=== PATIENT | male | born 1990 | race Two or more races ===

== ENCOUNTER 2019-02-01 07:20 | Emergency (ER) | payer MEDICAID ==
[2019-02-01 08:14] LABS: ABSOLUTE BASOPHILS # (AUTO) 0.1 10^3/uL (0.0-0.2); ABSOLUTE EOSINOPHILS # (AUTO) 0.4 10^3/uL (0.0-0.6); ABSOLUTE LYMPHOCYTES (AUTO) 2.2 10^3/uL (0.5-4.7); ABSOLUTE MONOCYTES (AUTO) 0.7 10^3/uL (0.1-1.4); ABSOLUTE NEUT (AUTO) 3.9 10^3/uL (1.7-8.2); BASOPHILS % (AUTO) 1.9 % (0-2); EOSINOPHILS % (AUTO) 5.5 % (0-6); HEMATOCRIT 45.6 % (37.9-51.0); LYMPHOCYTES % (AUTO) 29.8 % (13-45); MEAN CORPUSCULAR HEMOGLOBIN 27.3 pg (27.0-33.4); MEAN CORPUSCULAR HGB CONC 32.9 g/dL (32.0-36.0); MEAN CORPUSCULAR VOLUME 83 fl (80-97); MONOCYTES % (AUTO) 9.1 % (3-13); PLATELET COUNT 436 10^3/uL (150-450); RED CELL DISTRIBUTION WIDTH 14.4 % (11.5-14.0); SEGMENTED NEUTROPHILS % (AUTO) 53.7 % (42-78); TOTAL CELLS COUNTED % (AUTO) 100 %; WHITE BLOOD COUNT 7.3 10^3/uL (4.0-10.5)
[2019-02-01 08:20] LABS: APPEARANCE,URINE CLEAR; BILIRUBIN,URINE NEGATIVE (NEGATIVE); COLOR,URINE YELLOW; GLUCOSE, URINE NEGATIVE (NEGATIVE); KETONES,URINE NEGATIVE (NEGATIVE); LEUKOCYTE ESTERASE,URINE NEGATIVE (NEGATIVE); NITRITE,URINE NEGATIVE (NEGATIVE); PROTEIN,URINE NEGATIVE (NEGATIVE); URINE SPECIFIC GRAVITY 1.021; UROBILINOGEN,URINE NEGATIVE mg/dL (<2.0)
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
[2019-02-01 08:26] LABS: ALANINE AMINOTRANSFERASE 149 U/L (21-72); ALBUMIN 4.6 g/dL (3.5-5.0); ALCOHOL 145 mg/dL (NONE DETECTED); ALKALINE PHOSPHATASE 71 U/L (38-126); ANION GAP 12 (5-19); ASPARTATE AMINO TRANSFERASE 81 U/L (17-59); BILIRUBIN,DIRECT 0.2 mg/dL (0.0-0.4); BILIRUBIN,TOTAL 0.4 mg/dL (0.2-1.3); BLOOD UREA NITROGEN 7 mg/dL (7-20); CALCIUM 9.8 mg/dL (8.4-10.2); CARBON DIOXIDE 27 mmol/L (22-30); CHLORIDE 102 mmol/L (98-107); GLUCOSE 97 mg/dL (75-110); POTASSIUM 4.5 mmol/L (3.6-5.0); SODIUM 140.7 mmol/L (137-145); TOTAL PROTEIN 7.9 g/dL (6.3-8.2)
[2019-02-01 08:27] LABS: ACETAMINOPHEN < 10 ug/mL (10-30); SALICYLATE < 1.0 mg/dL (2.0-20.0)
[2019-02-01 08:36] LABS: URINE AMPHETAMINES SCREEN NEGATIVE; URINE BARBITURATES SCREEN NEGATIVE; URINE BENZODIAZEPINES SCREEN NEGATIVE; URINE COCAINE SCREEN NEGATIVE; URINE MARIJUANA (THC) SCREEN NEGATIVE; URINE METHADONE SCREEN NEGATIVE; URINE PHENCYCLIDINE SCREEN NEGATIVE
--- NOTE | 2019-02-01 08:58 | EKG REPORT ---
SEVERITY:- OTHERWISE NORMAL ECG - SINUS RHYTHM LA ABNORMALITY. : Confirmed by: lA Hassan MD 01-Feb-2019 08:57:56
[2019-02-01] MEDS ORDERED: ZIPRASIDONE MESYLATE INJ/PF 20 MG SDV IM ONE (10:02)
[2019-02-01] MEDS ORDERED: BENZTROPINE MESYLATE INJ 2 MG/2 ML AMPULE IM ONE (10:02)
--- NOTE | 2019-02-01 10:32 | PSYCHOLOGICAL NOTE ---
Psych Note - Psych Note Date seen by psych provider: 02/01/19 Time seen by psych provider: 09:00 - 0920 Psych Note: Reason for Consult: Suicidal ideation Patient is a 28-year-old male presenting to the emergency department with suicidal ideation. Patient states he came here from [place] about a week ago to visit his mother. He confirms that he came down almost immediately after being released from inpatient psychiatric treatment. He disclosed that he did not fill his prescriptions upon being released because he felt moving down here and taking care of himself (i.e. working out and eating right) he would not need the medication. Patient admits to history of substance abuse including alcohol. He states that that was in his past however does have a positive Ethyl 145. No other substances are detected in toxicology. Patient reports he has not slept in approximately 4 days and has been working out 3 hours a day. He discloses that he has been trying to get himself exhausted to sleep however can only sleep for about 20 minutes at a time Patient's mother discloses concern that she has been attempting to obtain mental health services for her son and has been unable to achieve appropriate services in [place]. She discloses that he goes inpatient and then signed himself out. He is noncompliant on medications upon discharge and was homeless up in [place]. She disclosed she was hoping that his move down here to her would improve both his situation and treatment. Patient is alert and orientated to person, place, time and circumstance. Mood is hypomanic with flat affect. Patient has psychomotor agitation with ringing his hands and pacing. Eye contact is poor. Conversational speech is calm however halting as patient appears to be struggling with organized and linear thoughts. Behavior is congruent with an intact reality based presentation with no evidence of delusional thought processes. Intellectual abilities appear to be within the average range. Attention and concentration is poor. Insight, judgment, impulse control is poor. Bipolar per history provided by patient Polysubstance abuse per history provided by patient Medication recommendations per [facility]'s contracted psychiatrist Dr. Maciej DUCKWORTH are as follows continue Zyprexa 5mg twice daily Continue Cogentin 1mg daily Impression\plan: Patient is recommended for IVC petition for overnight mental health observation. Patient is presenting under the influence of alcohol. Patient does present with hypomanic mood and flat affect. He has a substantial history of mental health and substance abuse and has been in [facility] for approximately 1 week since arriving from [place]. Patient's mother lives in the local area. Dr. Delgado was consulted to care management of this patient; attending physicians in agreement with recommendations and disposition.
[2019-02-01] MEDS ORDERED: ACETAMINOPHEN 325 MG TABLET PO ONE ×2 (16:03→23:06)
[2019-02-01] MEDS: BENZTROPINE MESYLATE 1 MG TABLET PO SCH (18:45)
[2019-02-01] MEDS: OLANZAPINE 5 MG TABLET PO SCH (18:45)
[2019-02-02] MEDS ORDERED: ACETAMINOPHEN 325 MG TABLET PO ONE (09:08)
[2019-02-02] MEDS: OLANZAPINE 5 MG TABLET PO SCH ×2 (10:07→18:56)
[2019-02-02] MEDS: BENZTROPINE MESYLATE 1 MG TABLET PO SCH (10:07)
--- NOTE | 2019-02-02 10:31 | ER Document Report ---
Doctor's Note Notes: 02/02/19 10:30 I have evaluated this pt. this am and he has no c/o other than insomnia. He feels all of his needs are being met and his physical exam is normal. He is awaiting disposition per mental health.
[2019-02-02] MEDS ORDERED: ZIPRASIDONE MESYLATE INJ/PF 20 MG SDV IM ONE (11:56)
[2019-02-03] MEDS ORDERED: OLANZAPINE INJ/PF 10 MG SDV IM ONE (03:53)
[2019-02-03] MEDS: OLANZAPINE 5 MG TABLET PO SCH ×2 (10:59→17:39)
[2019-02-03] MEDS: BENZTROPINE MESYLATE 1 MG TABLET PO SCH (10:59)
--- NOTE | 2019-02-03 12:49 | ER Document Report ---
Doctor's Note Notes: 02/03/19 12:47 Rounds: Chart reviewed and patient interviewed. Patient being evaluated for suicidal thoughts. Also have been drinking fairly heavily of alcohol with a level of 145 on admission. History of polysubstance abuse. Lab studies were essentially normal except for his blood alcohol of 145. Vital signs are all normal. Patient appears to be medically stable for transfer or discharge. Chris Bautista MD
--- NOTE | 2019-02-03 14:53 | PSYCHOLOGICAL NOTE ---
Psych Note - Psych Note Date seen by psych provider: 02/03/19 Time seen by psych provider: 10:00 Psych Note: Reason for Consult: Suicidal ideation Patient is a 28-year-old male presenting to the emergency department with suicidal ideation. Check in with patient conducted Patient continues to demonstrate with blunted affect with frequent pacing. He is only sleeping for about 2-3 hours after IM medication is administered. Medication recommendations have been updated. Patient identified improvement in anxiety. Bipolar per history provided by patient Polysubstance abuse per history provided by patient Medication recommendations per [facility]'s contracted psychiatrist Dr. Maciej DUCKWORTH are as follows continue Zyprexa 5mg twice daily Continue Cogentin 1mg daily please add depakote 500ng twice daily please add throazine 50mg at bedtime Impression\plan: Patient is recommended for continued IVC. Patient's affect has improved from flat however still is blunted. Patient's anxiety has improved per patient. Patient is still observed frequently pacing and has only slept approximately 2 to 3 hours after receiving IM medication. Updated medication recommendations have been provided. Patient will be reevaluated with the hope of possible discharge tomorrow. Dr. Delgado was consulted to care management of this patient; attending physicians in agreement with recommendations and disposition.
--- NOTE | 2019-02-03 14:57 | PSYCHOLOGICAL NOTE ---
Psych Note - Psych Note Date seen by psych provider: 02/02/19 Time seen by psych provider: 10:10 Psych Note: Reason for Consult: Suicidal ideation Patient is a 28-year-old male presenting to the emergency department with suicidal ideation. Check in with patient conducted Patient continues to demonstrate with flat affect with frequent pacing. Patient has required additional medications at night to aid in sleep. While patient has been compliant, he has demonstrated significant agitation and repeatedly requests to leave. Bipolar per history provided by patient Polysubstance abuse per history provided by patient Medication recommendations per [facility]'s contracted psychiatrist Dr. Maciej DUCKWORTH are as follows continue Zyprexa 5mg twice daily Continue Cogentin 1mg daily Impression\plan: Patient is recommended for continued IVC. Patient's affect continues to be flat. Patient demonstrates significant agitation and repeatedly requests to leave. Patient will be reevaluated. Dr. Delgado was consulted to care management of this patient; attending physicians in agreement with recommendations and disposition.
[2019-02-03] MEDS: ACETAMINOPHEN 325 MG TABLET PO PRN (16:29)
[2019-02-03] MEDS: DIVALPROEX SODIUM 500 MG TAB.SR.24H PO SCH (17:40)
[2019-02-03] MEDS ORDERED: CHLORPROMAZINE HCL 50 MG TABLET PO SCH (22:00)
--- NOTE | 2019-02-04 09:39 | ER Document Report ---
Doctor's Note Notes: 02/04/19 09:38 Rounds: Chart reviewed and patient interviewed. Patient is being evaluated for substance abuse, particularly alcohol. Also complains of being suicidal. Says he is feeling better today. Vital signs are all normal. No new labs to review. Patient appears to be medically stable for transfer or discharge. Chris Bautista MD
[2019-02-04] MEDS: OLANZAPINE 5 MG TABLET PO SCH (09:42)
[2019-02-04] MEDS: BENZTROPINE MESYLATE 1 MG TABLET PO SCH (09:42)
[2019-02-04] MEDS: ACETAMINOPHEN 325 MG TABLET PO PRN (09:42)
[2019-02-04] MEDS: DIVALPROEX SODIUM 500 MG TAB.SR.24H PO SCH (09:42)
[2019-02-04 12:33] VITALS: BP 140/80
--- NOTE | 2019-02-05 14:47 | PSYCHOLOGICAL NOTE ---
Psych Note - Psych Note Date seen by psych provider: 02/04/19 Time seen by psych provider: 08:54 - Evaluation from [id number]. Psych Note: Presenting Problem: SI, IVC, medication adjustments. Today patient reported he felt" better, actually got sleep last night and felt refreshed." He commented he had not slept in days prior. Mood was still depressed but with brighter affect. He denied negative side effects from medications and no observed symptoms. He identified his "anxiety was still there, has lots going on, but it is not as bad." He noted "I do feel good and like I can concentrate." He denied SI/HI. Patient was alert and oriented x5, had linear thinking, fair eye contact, was able to carry on dialogue conversation, able to express self/wants/needs and part of his plan of care for discharge. Family friend who works in the mental health profession came to visit patient. Mother part of plan of care and present prior to discharge. She agreed to in control of medications and administration. She identified patient has [place] Medicaid and so issue is access to health care/cost of medications until it can be transferred (have not started process yet). Diagnosis: 296.80 (F31.9) Unspecified Bipolar and Related Disorder by Hx per patient 291.9 (F10.99) Unspecified Alcohol Related Disorder (Serum Alcohol level was 145, patient stated it was to sleep) Poor Sleep Polysubstance Use by Hx per patient Impression/Plan: Patient is cleared from acute psychiatric services. Recommendation to rescind IVC. He denied SI/HI and no observed psychosis. He was alert and oriented x5 with linear thinking. Mother involved in plan of care and agreed to be in control of medications and administration. Patient provided with the outpatient MH resource sheet which highlighted [facility] for crisis/talk therapy/linkage to other supports and services, as well [facility] as a walk in M-F [id number] with recommendation to go first thing tomorrow (02/05/19) morning. Also provided [facility] information (where family friend had connections). Provided Good Rx card and coupons for medications. Informed patient and mother to do state to state Medicaid transfer patient needs to contact [facility] and likely go to office. Consulted with Dr. Delgado regarding the management and care of patient. ED Physician in agreement with recommendations.
== END 2019-02-04 12:29 | disposition home or self-care (01) ==
LOC: ER 07:20
DX: R45.851 Suicidal ideations (principal); F10.920 Alcohol use, unspecified with intoxication, uncomplicated; Y90.6 Blood alcohol level of 120-199 mg/100 ml; F30.8 Other manic episodes; F19.10 Other psychoactive substance abuse, uncomplicated; G47.00 Insomnia, unspecified
CPT/HCPCS: 93005; 36415; 80307 ×4; 85025; 80053; 81001; 93010; J0515; J3486; 96372; 99285; J3490

== ENCOUNTER 2019-02-07 12:01 | Emergency (ER) | payer SELFPAY ==
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
[2019-02-07 13:27] LABS: ABSOLUTE BASOPHILS # (AUTO) 0.1 10^3/uL (0.0-0.2); ABSOLUTE EOSINOPHILS # (AUTO) 0.1 10^3/uL (0.0-0.6); ABSOLUTE MONOCYTES (AUTO) 0.7 10^3/uL (0.1-1.4); ABSOLUTE NEUT (AUTO) 4.4 10^3/uL (1.7-8.2); BASOPHILS % (AUTO) 1.3 % (0-2); LYMPHOCYTES % (AUTO) 27.2 % (13-45); MEAN CORPUSCULAR HGB CONC 33.3 g/dL (32.0-36.0); MEAN CORPUSCULAR VOLUME 84 fl (80-97); MONOCYTES % (AUTO) 9.7 % (3-13); PLATELET COUNT 292 10^3/uL (150-450); RED CELL DISTRIBUTION WIDTH 15.3 % (11.5-14.0); SEGMENTED NEUTROPHILS % (AUTO) 59.8 % (42-78); TOTAL CELLS COUNTED % (AUTO) 100 %; WHITE BLOOD COUNT 7.4 10^3/uL (4.0-10.5)
[2019-02-07 13:35] LABS: APPEARANCE,URINE CLEAR; BILIRUBIN,URINE NEGATIVE (NEGATIVE); COLOR,URINE YELLOW; GLUCOSE, URINE NEGATIVE (NEGATIVE); KETONES,URINE TRACE mg/dL (NEGATIVE); LEUKOCYTE ESTERASE,URINE NEGATIVE (NEGATIVE); NITRITE,URINE NEGATIVE (NEGATIVE); PROTEIN,URINE NEGATIVE (NEGATIVE); URINE SPECIFIC GRAVITY 1.011; UROBILINOGEN,URINE NEGATIVE mg/dL (<2.0)
[2019-02-07 13:49] LABS: URINE AMPHETAMINES SCREEN NEGATIVE; URINE BARBITURATES SCREEN NEGATIVE; URINE BENZODIAZEPINES SCREEN NEGATIVE; URINE COCAINE SCREEN NEGATIVE; URINE MARIJUANA (THC) SCREEN NEGATIVE; URINE METHADONE SCREEN NEGATIVE; URINE PHENCYCLIDINE SCREEN NEGATIVE
[2019-02-07 13:53] LABS: ALANINE AMINOTRANSFERASE 124 U/L (21-72); ALBUMIN 4.4 g/dL (3.5-5.0); ALKALINE PHOSPHATASE 52 U/L (38-126); ANION GAP 10 (5-19); ASPARTATE AMINO TRANSFERASE 52 U/L (17-59); BILIRUBIN,DIRECT 0.3 mg/dL (0.0-0.4); BILIRUBIN,TOTAL 0.4 mg/dL (0.2-1.3); BLOOD UREA NITROGEN 9 mg/dL (7-20); CALCIUM 9.9 mg/dL (8.4-10.2); CARBON DIOXIDE 25 mmol/L (22-30); CHLORIDE 106 mmol/L (98-107); GLUCOSE 97 mg/dL (75-110); POTASSIUM 4.3 mmol/L (3.6-5.0); TOTAL PROTEIN 7.4 g/dL (6.3-8.2)
[2019-02-07 13:55] LABS: ACETAMINOPHEN < 10 ug/mL (10-30); ALCOHOL < 10 mg/dL (NONE DETECTED); SALICYLATE < 1.0 mg/dL (2.0-20.0)
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
[2019-02-07 17:56] VITALS: BP 128/75
--- NOTE | 2019-02-07 23:48 | EKG REPORT ---
SEVERITY:- ABNORMAL ECG - SINUS RHYTHM NONSPECIFIC T ABNORMALITIES, INFERIOR LEADS : Confirmed by: Seema Albrecht 07-Feb-2019 23:47:42
== END 2019-02-07 17:38 | disposition home or self-care (01) ==
LOC: ER 12:01
DX: F31.9 Bipolar disorder, unspecified (principal); R45.851 Suicidal ideations; F17.200 Nicotine dependence, unspecified, uncomplicated; Z59.0 Homelessness; Z91.013 Allergy to seafood
CPT/HCPCS: 36415; 80053; 80307; 81001; 85025; 93005; 93010; 99285

== ENCOUNTER 2019-02-26 07:25 | Emergency (ER) | payer SELFPAY ==
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
[2019-02-26 08:22] LABS: APPEARANCE,URINE CLEAR; BILIRUBIN,URINE NEGATIVE (NEGATIVE); COLOR,URINE YELLOW; GLUCOSE, URINE NEGATIVE (NEGATIVE); KETONES,URINE NEGATIVE (NEGATIVE); LEUKOCYTE ESTERASE,URINE NEGATIVE (NEGATIVE); NITRITE,URINE NEGATIVE (NEGATIVE); PROTEIN,URINE NEGATIVE (NEGATIVE); URINE SPECIFIC GRAVITY 1.024; UROBILINOGEN,URINE NEGATIVE mg/dL (<2.0)
[2019-02-26 08:37] LABS: URINE AMPHETAMINES SCREEN UNCONFIRMED POSITIVE; URINE BARBITURATES SCREEN NEGATIVE; URINE BENZODIAZEPINES SCREEN NEGATIVE; URINE COCAINE SCREEN NEGATIVE; URINE MARIJUANA (THC) SCREEN NEGATIVE; URINE METHADONE SCREEN UNCONFIRMED POSITIVE; URINE PHENCYCLIDINE SCREEN NEGATIVE
[2019-02-26 08:41] LABS: ABSOLUTE EOSINOPHILS # (AUTO) 0.6 10^3/uL (0.0-0.6); ABSOLUTE LYMPHOCYTES (AUTO) 2.3 10^3/uL (0.5-4.7); ABSOLUTE MONOCYTES (AUTO) 1.1 10^3/uL (0.1-1.4); ABSOLUTE NEUT (AUTO) 2.4 10^3/uL (1.7-8.2); BASOPHILS % (AUTO) 0.1 % (0-2); EOSINOPHILS % (AUTO) 8.8 % (0-6); HEMATOCRIT 43.6 % (37.9-51.0); HEMOGLOBIN 14.5 g/dL (13.5-17.0); MEAN CORPUSCULAR HEMOGLOBIN 27.9 pg (27.0-33.4); MEAN CORPUSCULAR HGB CONC 33.1 g/dL (32.0-36.0); MEAN CORPUSCULAR VOLUME 84 fl (80-97); MONOCYTES % (AUTO) 17.5 % (3-13); PLATELET COUNT 283 10^3/uL (150-450); RED BLOOD COUNT 5.18 10^6/uL (4.35-5.55); RED CELL DISTRIBUTION WIDTH 14.9 % (11.5-14.0); SEGMENTED NEUTROPHILS % (AUTO) 37.6 % (42-78); TOTAL CELLS COUNTED % (AUTO) 100 %; WHITE BLOOD COUNT 6.3 10^3/uL (4.0-10.5)
[2019-02-26 08:59] LABS: ALBUMIN 4.5 g/dL (3.5-5.0); ALKALINE PHOSPHATASE 56 U/L (38-126); ANION GAP 10 (5-19); ASPARTATE AMINO TRANSFERASE 41 U/L (17-59); BILIRUBIN,DIRECT 0.3 mg/dL (0.0-0.4); BILIRUBIN,TOTAL 0.6 mg/dL (0.2-1.3); BLOOD UREA NITROGEN 16 mg/dL (7-20); CALCIUM 9.7 mg/dL (8.4-10.2); CARBON DIOXIDE 30 mmol/L (22-30); CHLORIDE 99 mmol/L (98-107); GLUCOSE 93 mg/dL (75-110); POTASSIUM 4.3 mmol/L (3.6-5.0); TOTAL PROTEIN 7.6 g/dL (6.3-8.2)
[2019-02-26 09:06] LABS: ACETAMINOPHEN < 10 ug/mL (10-30); ALCOHOL < 10 mg/dL (NONE DETECTED); SALICYLATE < 1.0 mg/dL (2.0-20.0)
[2019-02-26] MEDS ORDERED: NICOTINE 21 MG/24 HR PATCH.TD24 TD ONE (09:06)
[2019-02-26] MEDS ORDERED: LORAZEPAM 1 MG TABLET PO ONE ×2 (09:06→15:12)
--- NOTE | 2019-02-26 17:12 | ER Document Report ---
Doctor's Note Notes: 02/26/19 17:11 Patient is transported here. Patient is standing in his room walking around says he is very tired. Says he has not slept for about 3 days. Patient has a history of bipolar disorder. He is being placed in another facility. Patient's vital signs are essentially normal. Patient appears to be medically stable for transfer. Chris Bautista MD
[2019-02-26 17:46] VITALS: BP 130/85
--- NOTE | 2019-02-27 09:41 | EKG REPORT ---
SEVERITY:- BORDERLINE ECG - SINUS RHYTHM BORDERLINE T ABNORMALITIES, INFERIOR LEADS : Confirmed by: Seema Albrecht 27-Feb-2019 09:40:58
== END 2019-02-26 17:25 ==
LOC: ER 07:25
DX: R45.851 Suicidal ideations (principal); G47.00 Insomnia, unspecified; Z79.899 Other long term (current) drug therapy; F17.200 Nicotine dependence, unspecified, uncomplicated
CPT/HCPCS: 36415; 80053; 80164; 80307; 81001; 85025; 93005; 93010; 99285

== ENCOUNTER 2019-03-08 12:02 | Emergency (ER) | payer SELFPAY ==
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
[2019-03-08] MEDS ORDERED: HYDROXYZINE PAMOATE 50 MG CAPSULE PO ONE (12:43)
[2019-03-08 12:44] LABS: ABSOLUTE BASOPHILS # (AUTO) 0.1 10^3/uL (0.0-0.2); ABSOLUTE EOSINOPHILS # (AUTO) 0.3 10^3/uL (0.0-0.6); ABSOLUTE LYMPHOCYTES (AUTO) 2.9 10^3/uL (0.5-4.7); ABSOLUTE MONOCYTES (AUTO) 1.2 10^3/uL (0.1-1.4); ABSOLUTE NEUT (AUTO) 6.2 10^3/uL (1.7-8.2); HEMATOCRIT 42.3 % (37.9-51.0); HEMOGLOBIN 14.2 g/dL (13.5-17.0); LYMPHOCYTES % (AUTO) 27.1 % (13-45); MEAN CORPUSCULAR HEMOGLOBIN 27.8 pg (27.0-33.4); MEAN CORPUSCULAR HGB CONC 33.7 g/dL (32.0-36.0); MEAN CORPUSCULAR VOLUME 83 fl (80-97); MONOCYTES % (AUTO) 11.5 % (3-13); PLATELET COUNT 317 10^3/uL (150-450); RED BLOOD COUNT 5.12 10^6/uL (4.35-5.55); RED CELL DISTRIBUTION WIDTH 14.3 % (11.5-14.0); SEGMENTED NEUTROPHILS % (AUTO) 57.4 % (42-78); TOTAL CELLS COUNTED % (AUTO) 100 %; WHITE BLOOD COUNT 10.8 10^3/uL (4.0-10.5)
[2019-03-08 12:54] LABS: ALBUMIN 4.3 g/dL (3.5-5.0); ALKALINE PHOSPHATASE 55 U/L (38-126); ANION GAP 10 (5-19); ASPARTATE AMINO TRANSFERASE 35 U/L (17-59); BILIRUBIN,DIRECT 0.2 mg/dL (0.0-0.4); BILIRUBIN,TOTAL 0.3 mg/dL (0.2-1.3); BLOOD UREA NITROGEN 10 mg/dL (7-20); CALCIUM 9.5 mg/dL (8.4-10.2); CARBON DIOXIDE 26 mmol/L (22-30); CHLORIDE 105 mmol/L (98-107); GLUCOSE 79 mg/dL (75-110); POTASSIUM 4.2 mmol/L (3.6-5.0); TOTAL PROTEIN 7.1 g/dL (6.3-8.2)
[2019-03-08 12:55] LABS: ACETAMINOPHEN < 10 ug/mL (10-30); ALCOHOL < 10 mg/dL (NONE DETECTED); SALICYLATE < 1.0 mg/dL (2.0-20.0)
[2019-03-08 13:18] LABS: APPEARANCE,URINE CLEAR; BILIRUBIN,URINE NEGATIVE (NEGATIVE); COLOR,URINE YELLOW; GLUCOSE, URINE NEGATIVE (NEGATIVE); KETONES,URINE NEGATIVE (NEGATIVE); LEUKOCYTE ESTERASE,URINE NEGATIVE (NEGATIVE); NITRITE,URINE NEGATIVE (NEGATIVE); PROTEIN,URINE NEGATIVE (NEGATIVE); URINE SPECIFIC GRAVITY 1.019; UROBILINOGEN,URINE NEGATIVE mg/dL (<2.0)
[2019-03-08 13:36] LABS: URINE AMPHETAMINES SCREEN NEGATIVE; URINE BARBITURATES SCREEN NEGATIVE; URINE BENZODIAZEPINES SCREEN NEGATIVE; URINE COCAINE SCREEN NEGATIVE; URINE MARIJUANA (THC) SCREEN NEGATIVE; URINE METHADONE SCREEN NEGATIVE; URINE PHENCYCLIDINE SCREEN NEGATIVE
[2019-03-08] MEDS ORDERED: OLANZAPINE 5 MG TAB.RAPDIS PO ONE (13:46)
--- NOTE | 2019-03-08 14:24 | PSYCHOLOGICAL NOTE ---
Psych Note - Psych Note Date seen by psych provider: 03/08/19 Time seen by psych provider: 13:00 Psych Note: Reason for Consult: Suicidal ideation Patient affirms that he was at [facility] for 7 days and they put him on Seroquel to help sleep. He states that they tried to change his Depakote to gabapentin however he told the provider that he did not want to take it because it did not work in the past so "I guess he took it off the sheet." He states that he has been feeling "really should he" and almost jumped off his mother's balcony last night. He is unsure what stopped him from jumping. He reports that this morning he told her and has been trying to get admitted inpatient. He reports that he went to [facility] but they stated they did not have a bed for him. Clinician explained that [facility] typically only takes patients with insurance however explained that there is a new crisis center that is open for all demographics. Patient is noted to demonstrate surprise look and think clinician for telling him about it stating that he did not know (clinician notes patient was staying at [facility] from 02/07/2019 until 02/09/2019). He states that he is "scared that he will do something to hurt himself... scared that if he survived actually jumping... scared that if his mom found him..." He reports that he took Depakote for approximately 3 weeks however "apparently I got manic. My mom said that I was talking crazy stuff but I do not remember anything." He states that he still feels "sad because I do not want to be here anymore, I am a burden, I cannot find work." He reports that he has been clean for approximately a year. He is unsure who his outpatient mental health provider is and thinks that he was supposed to see some but he sometime next week. He disclosed that he feels that he did not get much help while he was in [facility]. Patient reports that he continues to have thoughts of jumping from somewhere high (Clinician notes this is the same thoguhts as previous visit on 02/26/2019) or "cutting myself." Patient is alert and orientated to person, place, time and circumstance. Mood is dysphoric with congruent affect. Patient endorses chronic passive suicidal ideation i.e. no plans means or intent. Patient denies homicidal ideation. Delusions are absent behaviors congruent with an intact reality based presentation i.e. organized and linear thought process. Eye contact is poor. Conversational speech is within normal rate, tone and prosody. Intellectual abilities appear to be within the average range. Attention and concentration are good. Insight, judgment, impulse control are fair. Clinician notes thought content appears to be focused on a secondary gain. Chart Review Patient was seen on 02/01/2019 by the behavioral health team. He reported he came here from [place] about a week ago to visit his mother. He disclosed that he came down almost immediately after being released from inpatient psychiatric treatment. He disclosed that he did not fill his prescriptions upon being released because he felt moving down here and taking care of himself (i.e. working out and eating right) he would not need the medication. Patient was discharged on 02/04/2019 with medication prescriptions. Patient was seen on 02/07/2019 by the behavioral health team and sent to [facility] for voluntary placement. Clinician spoke with [facility] for continuity of care; patient was in their facility from 02/07/2019 until 02/09/2019. Patient was to follow up with [facility] on 02/14/2019. Patient was seen on 02/26/2019 by the behavioral health team and transported to [facility]. Patient reports he was there until 03/05/2019. Behavioral health team contacted [facility]. Patient has gone to his appointments and had one yesterday for therapy. Impression\\plan: Patient is cleared from acute psychiatric services. Patient does not meet IVC criteria per [place] GS 122C. Patient discloses chronic passive suicidal ideation with 2 known inpatient psychiatric treatments and one 4-day stay in [facility] ED for medication stabilization in less than 2 months. It is also noted that the patient disclosed just getting out of inpatient psychiatric treatment in [place] just prior to his arrival. Patient has a history of noncompliance with medications. Patient appears to have thought content that is focused on a secondary gain; however, it is unclear what it is at this time. While patient was homeless up in [place], he has been living with his mother since coming down to [place]. Clinician notes patient has strong support network with his mother as she has been at patient's bedside during each [facility] ED visit. Currently, the patient is not demonstrating any behaviors indicating he is manic or responding to internal stimuli. Patient has received acute psychiatric care 4 times within the last 2 months from multiple facilities and is noted to provide conflicting information in regards to both his outpatient mental health provider and his recent stay at [facility]. At this time, it would not be therapeutic for the patient to go inpatient psychiatric treatment as he needs to engage in therapeutic services. It is recommended the patient engage in either CBT or DBT to help him interpret his environment, build coping skills, and understand his triggers. Patient is also highly encouraged to be compliant with his medications. There is some conflicting information on whether the patient is compliant currently or not. Patient is encouraged to follow-up with his outpatient mental health provider [facility]. A referral will be sent to [facility] for consideration for community assistance or ACT for the patient. Dr. Delgado was consulted and the care management of this patient; attending physicians in agreement with recommendations and disposition.
[2019-03-08 15:11] VITALS: BP 134/91
--- NOTE | 2019-03-08 20:39 | EKG REPORT ---
SEVERITY:- NORMAL ECG - SINUS RHYTHM : Confirmed by: Sana Eng MD 08-Mar-2019 20:38:03
== END 2019-03-08 15:14 | disposition home or self-care (01) ==
LOC: ER 12:02
DX: F31.9 Bipolar disorder, unspecified (principal); J45.909 Unspecified asthma, uncomplicated; F17.210 Nicotine dependence, cigarettes, uncomplicated
CPT/HCPCS: 93005; 99285; 36415; 80307 ×4; 85025; 80053; 81001; 93010; J3490

== ENCOUNTER 2019-04-04 19:08 | Emergency (ER) | payer SELFPAY ==
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
[2019-04-04] MEDS ORDERED: NORMAL SALINE 1000 ML 1,000 ML IV ONE (19:50)
[2019-04-04] MEDS ORDERED: ACTIVATED CHARCOAL 25 GM BOTTLE PO ONE (19:50)
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
[2019-04-04 20:30] LABS: ABSOLUTE BASOPHILS # (AUTO) 0.1 10^3/uL (0.0-0.2); ABSOLUTE EOSINOPHILS # (AUTO) 0.4 10^3/uL (0.0-0.6); ABSOLUTE LYMPHOCYTES (AUTO) 2.9 10^3/uL (0.5-4.7); ABSOLUTE NEUT (AUTO) 3.7 10^3/uL (1.7-8.2); BASOPHILS % (AUTO) 1.5 % (0-2); EOSINOPHILS % (AUTO) 5.5 % (0-6); HEMATOCRIT 44.1 % (37.9-51.0); HEMOGLOBIN 14.7 g/dL (13.5-17.0); MEAN CORPUSCULAR HEMOGLOBIN 28.1 pg (27.0-33.4); MEAN CORPUSCULAR HGB CONC 33.2 g/dL (32.0-36.0); MEAN CORPUSCULAR VOLUME 85 fl (80-97); MONOCYTES % (AUTO) 12.5 % (3-13); PLATELET COUNT 246 10^3/uL (150-450); RED BLOOD COUNT 5.21 10^6/uL (4.35-5.55); RED CELL DISTRIBUTION WIDTH 14.6 % (11.5-14.0); SEGMENTED NEUTROPHILS % (AUTO) 45.5 % (42-78); TOTAL CELLS COUNTED % (AUTO) 100 %; WHITE BLOOD COUNT 8.2 10^3/uL (4.0-10.5)
[2019-04-04 20:45] LABS: ALBUMIN 4.6 g/dL (3.5-5.0); ALKALINE PHOSPHATASE 54 U/L (38-126); ANION GAP 14 (5-19); ASPARTATE AMINO TRANSFERASE 35 U/L (17-59); BILIRUBIN,DIRECT 0.1 mg/dL (0.0-0.4); BILIRUBIN,TOTAL 0.4 mg/dL (0.2-1.3); BLOOD UREA NITROGEN 11 mg/dL (7-20); CALCIUM 10.2 mg/dL (8.4-10.2); CARBON DIOXIDE 24 mmol/L (22-30); CHLORIDE 102 mmol/L (98-107); GLUCOSE 72 mg/dL (75-110); POTASSIUM 4.6 mmol/L (3.6-5.0); TOTAL PROTEIN 7.5 g/dL (6.3-8.2)
[2019-04-04 20:51] LABS: ACETAMINOPHEN < 10 ug/mL (10-30); ALCOHOL < 10 mg/dL (NONE DETECTED); SALICYLATE < 1.0 mg/dL (2.0-20.0)
[2019-04-04 22:13] LABS: APPEARANCE,URINE CLEAR; BILIRUBIN,URINE NEGATIVE (NEGATIVE); COLOR,URINE YELLOW; GLUCOSE, URINE NEGATIVE (NEGATIVE); KETONES,URINE TRACE mg/dL (NEGATIVE); LEUKOCYTE ESTERASE,URINE NEGATIVE (NEGATIVE); NITRITE,URINE NEGATIVE (NEGATIVE); PROTEIN,URINE NEGATIVE (NEGATIVE); URINE SPECIFIC GRAVITY 1.017; UROBILINOGEN,URINE NEGATIVE mg/dL (<2.0)
[2019-04-04 22:29] LABS: URINE AMPHETAMINES SCREEN NEGATIVE; URINE BARBITURATES SCREEN NEGATIVE; URINE BENZODIAZEPINES SCREEN NEGATIVE; URINE COCAINE SCREEN NEGATIVE; URINE MARIJUANA (THC) SCREEN NEGATIVE; URINE METHADONE SCREEN NEGATIVE; URINE PHENCYCLIDINE SCREEN NEGATIVE
--- NOTE | 2019-04-05 06:37 | EKG REPORT ---
SEVERITY:- NORMAL ECG - SINUS RHYTHM : Confirmed by: Al Hassan MD 05-Apr-2019 06:37:34
[2019-04-05 07:01] VITALS: BP 121/79
[2019-04-05] MEDS ORDERED: LORAZEPAM 1 MG TABLET PO ONE (08:19)
--- NOTE | 2019-04-05 09:53 | ER Document Report ---
Doctor's Note Notes: 04/05/19 09:51 I have evaluated this pt. this am and he has no c/o at this time. His mother is in the room with him. He feels all of his needs are being met and his physical exam is normal. He is awaiting disposition per mental health.
--- NOTE | 2019-04-05 13:17 | PSYCHOLOGICAL NOTE ---
Psych Note - Psych Note Date seen by psych provider: 04/05/19 Time seen by psych provider: 08:00 Psych Note: Reason for consult: Intentional overdose Consent permissions: Patient's mother at bedside per patient's request Patient is a 28-year-old male with a past medical history of bipolar disorder and chronic depression who presents with suicidal ideation and attempt after taking approximately 8 Clonazepam 1 mg tablets as well as approximately 10 Prozac of unknown dose. Patient reports this was an attempt to hurt himself. Patient reports that he is supposed to go to [facility] today for his an appointment with [facility]. He states that krissy kept putting him off and was feeling down so went to [facility] for 10 days. Patient reports he took "a few pills and my mom made a big deal about it so she brought me here." Patient states he took Klonopin and another medication but is unable to remember. Clinician notes prior to exiting the room patient requests something for anxiety because he states his anxiety is escalating. Patient is not demonstrating any physiological signs of increased anxiety i.e. patient calmly sitting, no psychomotor agitation, and no sweating with good eye contact. Clinician explained that at this time the behavioral health team would be unable to provide anything for anxiety and reminded the patient to engage in coping skills. Clinician was notified by attending nurse that the patient received Ativan by a physician order at 8:24 AM. Patient is again requesting anti- anxiety medications currently at 1 PM. Patient is alert and orientated to person, place, time and circumstance. Mood is dysphoric with congruent affect. Patient endorses chronic passive suicidal ideation i.e. no plans means or intent and reports intentional overdose which he immediately reached out for assistance. Patient denies homicidal ideation. Delusions are absent behaviors congruent with an intact reality based presentation i.e. organized and linear thought process. Eye contact is good. Conversational speech is within normal rate, tone and prosody. Intellectual abilities appear to be within the average range. Attention and concentration are good. Insight, judgment, impulse control are fair. Clinician notes thought content appears to be focused on a secondary gain. Chart Review Patient was seen on 02/01/2019 by the behavioral health team. He reported he came here from [place] about a week ago to visit his mother. He disclosed that he came down almost immediately after being released from inpatient psychiatric treatment. He disclosed that he did not fill his prescriptions upon being released because he felt moving down here and taking care of himself (i.e. working out and eating right) he would not need the medication. Patient was discharged on 02/04/2019 with medication prescriptions. Patient was seen on 02/07/2019 by the behavioral health team and sent to [facility] for voluntary placement. Clinician spoke with [facility] for continuity of care; patient was in their facility from 02/07/2019 until 02/09/2019. Patient was to follow up with [facility] [place] on 02/14/2019. Patient was seen on 02/26/2019 by the behavioral health team [facility]. Patient reports he was there until 03/05/2019. Patient was seen on 03/08/2019 by the behavioral health team. Behavioral [place] Team Contacted [facility] and confirmed the patient was discharged from their facility yesterday. Behavioral health team contacted [facility]. Patient has an appointment today at 4pm Diagnosis unspecified personality disorder; clinician notes significant cluster B personality traits are noted Bipolar 1 disorder per history provided by patient Polysubstance abuse per history provided by patient No medication recommendations at this time Impression\\plan: Patient is cleared from acute psychiatric services. Attending evening physician reported completing IVC paperwork; however, the petition was not completed correctly. Due to the patient not meeting IVC criteria per [place] GS 122C, the petition will not be completed. Patient reported intentional overdose which he immediately reached out for assistance. He suffers from chronic passive suicidal ideation with 3 known inpatient psychiatric treatments and one 4-day stay in [facility] ED for medication stabilization in less than 3 months. He was just released yesterday from [facility] after a 10 day stay. It is also noted that the patient disclosed getting out of inpatient psychiatric treatment in [place] just prior to his arrival to [place]. Patient has a history of noncompliance with medications. Patient appears to have thought content that is focused on a secondary gain; however, it is unclear what it is at this time. While patient was homeless up in [place], he has been living with his mother since coming down to [place]. Clinician notes patient has strong support network with his mother as she has been at patient's bedside during each [facility] ED visit. Currently, the patient is not demonstrating any behaviors indicating he is manic or responding to internal stimuli. Patient has received acute psychiatric care 8 times within the last 3 months from multiple facilities. At this time, it would not be therapeutic for the patient to go inpatient psychiatric treatment as he needs to engage in therapeutic services. It is recommended the patient engage in either CBT or DBT to help him interpret his environment, build coping skills, and understand his triggers. Patient is also highly encouraged to be compliant with his medications. There is some conflicting information on whether the patient is compliant currently or not. Patient is encouraged to follow-up with his outpatient mental health provider [facility]. A referral will be sent to [facility] for consideration for community assistance or ACT for the patient. Dr. Delgado was consulted and the care management of this mauro ent; attending physicians in agreement with recommendations and disposition.
== END 2019-04-05 14:38 | disposition home or self-care (01) ==
LOC: ER 19:08
DX: F32.9 Major depressive disorder, single episode, unspecified (principal); T42.4X2A Poisoning by benzodiazepines, intentional self-harm, initial encounter; T43.222A Poisoning by selective serotonin reuptake inhibitors, intentional self-harm, initial encounter
CPT/HCPCS: 36415; 80307 ×4; 83735; 85025; 80053; 81001; 80164; J7030; 93005; 93010

== ENCOUNTER → 2019-06-01 | Outpatient (CLI) | payer OTHER ==
[2019-06-01 09:46] LABS: ABSOLUTE BASOPHILS # (AUTO) 0.1 10^3/uL (0.0-0.2); ABSOLUTE EOSINOPHILS # (AUTO) 0.6 10^3/uL (0.0-0.6); ABSOLUTE LYMPHOCYTES (AUTO) 2.2 10^3/uL (0.5-4.7); ABSOLUTE MONOCYTES (AUTO) 0.7 10^3/uL (0.1-1.4); ABSOLUTE NEUT (AUTO) 3.3 10^3/uL (1.7-8.2); BASOPHILS % (AUTO) 1.4 % (0-2); EOSINOPHILS % (AUTO) 8.1 % (0-6); HEMATOCRIT 44.3 % (37.9-51.0); LYMPHOCYTES % (AUTO) 32.6 % (13-45); MEAN CORPUSCULAR HEMOGLOBIN 28.5 pg (27.0-33.4); MEAN CORPUSCULAR HGB CONC 33.9 g/dL (32.0-36.0); MEAN CORPUSCULAR VOLUME 84 fl (80-97); MONOCYTES % (AUTO) 9.9 % (3-13); PLATELET COUNT 263 10^3/uL (150-450); RED BLOOD COUNT 5.26 10^6/uL (4.35-5.55); RED CELL DISTRIBUTION WIDTH 13.4 % (11.5-14.0); TOTAL CELLS COUNTED % (AUTO) 100 %; WHITE BLOOD COUNT 6.8 10^3/uL (4.0-10.5)
[2019-06-01 10:12] LABS: ALBUMIN 4.6 g/dL (3.5-5.0); ALKALINE PHOSPHATASE 58 U/L (38-126); ANION GAP 10 (5-19); ASPARTATE AMINO TRANSFERASE 34 U/L (17-59); BILIRUBIN,DIRECT 0.1 mg/dL (0.0-0.4); BILIRUBIN,TOTAL 0.6 mg/dL (0.2-1.3); BLOOD UREA NITROGEN 10 mg/dL (7-20); CALCIUM 9.8 mg/dL (8.4-10.2); CARBON DIOXIDE 29 mmol/L (22-30); CHLORIDE 102 mmol/L (98-107); GLUCOSE 75 mg/dL (75-110); POTASSIUM 4.1 mmol/L (3.6-5.0); TOTAL PROTEIN 7.9 g/dL (6.3-8.2)
[2019-06-02 08:37] LABS: HEPATITS B SURFACE ANTIGEN Negative (Negative)
[2019-06-02 09:14] LABS: HEPATITIS C VIRUS ANTIBODY >11.0 s/co ratio (0.0-0.9)
== END ==
LOC: CCC 08:52
DX: Z00.00 Encounter for general adult medical examination without abnormal findings (principal)
CPT/HCPCS: 36415; 80053; 80074; 81270; 83036; 84443; 85025

== ENCOUNTER 2019-11-09 18:33 | Emergency (ER) | payer MEDICAID, OTHER ==
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
[2019-11-09] MEDS ORDERED: LIDOCAINE 1% INJ-PF (10 MG/ML) 30 ML SDV INJ ONE (20:36)
[2019-11-09] MEDS ORDERED: ACETAMINOPHEN 325 MG TABLET PO ONE (20:37)
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
[2019-11-09 21:27] VITALS: BP 134/98
== END 2019-11-09 21:50 | disposition home or self-care (01) ==
LOC: ER 18:33
DX: S61.215A Laceration without foreign body of left ring finger without damage to nail, initial encounter (principal); W26.0XXA Contact with knife, initial encounter
CPT/HCPCS: 99282; 12001; J3490

== ENCOUNTER 2019-11-20 09:25 | Emergency (ER) | payer MEDICAID ==
[2019-11-20 09:32] VITALS: BP 130/89
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
== END 2019-11-20 10:23 | disposition home or self-care (01) ==
LOC: ER 09:25
DX: S61.215D Laceration without foreign body of left ring finger without damage to nail, subsequent encounter (principal); W26.0XXD Contact with knife, subsequent encounter; Z91.013 Allergy to seafood

== ENCOUNTER → 2020-06-07 | Outpatient (CLI) | payer MEDICAID ==
[2020-06-07 12:41] LABS: ABSOLUTE BASOPHILS # (AUTO) 0.1 10^3/uL (0.0-0.2); ABSOLUTE EOSINOPHILS # (AUTO) 0.5 10^3/uL (0.0-0.6); ABSOLUTE LYMPHOCYTES (AUTO) 2.5 10^3/uL (0.5-4.7); ABSOLUTE MONOCYTES (AUTO) 0.6 10^3/uL (0.1-1.4); ABSOLUTE NEUT (AUTO) 2.9 10^3/uL (1.7-8.2); BASOPHILS % (AUTO) 1.3 % (0-2); EOSINOPHILS % (AUTO) 8.2 % (0-6); HEMATOCRIT 43.6 % (37.9-51.0); HEMOGLOBIN 14.7 g/dL (13.5-17.0); LYMPHOCYTES % (AUTO) 38.2 % (13-45); MEAN CORPUSCULAR HEMOGLOBIN 28.2 pg (27.0-33.4); MEAN CORPUSCULAR HGB CONC 33.8 g/dL (32.0-36.0); MEAN CORPUSCULAR VOLUME 84 fl (80-97); MONOCYTES % (AUTO) 8.4 % (3-13); PLATELET COUNT 271 10^3/uL (150-450); RED BLOOD COUNT 5.21 10^6/uL (4.35-5.55); RED CELL DISTRIBUTION WIDTH 14.1 % (11.5-14.0); SEGMENTED NEUTROPHILS % (AUTO) 43.9 % (42-78); TOTAL CELLS COUNTED % (AUTO) 100 %; WHITE BLOOD COUNT 6.7 10^3/uL (4.0-10.5)
[2020-06-07 12:49] LABS: ALBUMIN 4.5 g/dL (3.5-5.0); ALKALINE PHOSPHATASE 76 U/L (38-126); ANION GAP 11 (5-19); ASPARTATE AMINO TRANSFERASE 30 U/L (17-59); BILIRUBIN,DIRECT 0.1 mg/dL (0.0-0.4); BILIRUBIN,TOTAL 0.5 mg/dL (0.2-1.3); BLOOD UREA NITROGEN 12 mg/dL (7-20); CALCIUM 9.9 mg/dL (8.4-10.2); CARBON DIOXIDE 25 mmol/L (22-30); CHLORIDE 102 mmol/L (98-107); CHOLESTEROL 234.53 mg/dL (0-200); GLUCOSE 87 mg/dL (75-110); POTASSIUM 4.7 mmol/L (3.6-5.0); TOTAL PROTEIN 7.4 g/dL (6.3-8.2); TRIGLYCERIDES 209 mg/dL (<150)
[2020-06-07 12:59] LABS: DIRECT LDL 163 mg/dL (<100)
[2020-06-07 13:01] LABS: VLDL CHOLESTEROL 41.8 mg/dL (10-31)
== END ==
LOC: OD 10:44
PROVIDERS: ATTEND Nurse Practitioner Family
DX: J45.20 Mild intermittent asthma, uncomplicated (principal); R22.32 Localized swelling, mass and lump, left upper limb; Z13.220 Encounter for screening for lipoid disorders
CPT/HCPCS: 36415; 80053; 80061; 85025